=== PATIENT | female | born 1935 | race Two or more races ===

== ENCOUNTER 2018-02-21 15:16 | Emergency (ER) | payer OTHER ==
[~2018-02-21] VITALS: Ht 149.9 cm; Wt 52.2 kg
[~2018-02-21 15:16] MED LIST: ANTIVERT25 M1 PO
[2018-02-21] MEDS ORDERED: SYNTHROID50 MCG PO (15:26)
[2018-02-21] MEDS ORDERED: SINEMET 25-1001 EACH PO (15:27)
== END 2018-02-21 19:28 | disposition home or self-care (01) ==
LOC: ER 15:16
DX: S42.031A Displaced fracture of lateral end of right clavicle, initial encounter for closed fracture (principal); S62.511A Displaced fracture of proximal phalanx of right thumb, initial encounter for closed fracture; S90.111A Contusion of right great toe without damage to nail, initial encounter; S19.9XXA Unspecified injury of neck, initial encounter; W01.198A Fall on same level from slipping, tripping and stumbling with subsequent striking against other object, initial encounter; Y93.01 Activity, walking, marching and hiking; Y92.018 Other place in single-family (private) house as the place of occurrence of the external cause; Y99.8 Other external cause status

== ENCOUNTER 2022-01-07 13:45 | Emergency (ER) | payer OTHER ==
[~2022-01-07] VITALS: Ht 152.4 cm; Wt 45.4 kg
[~2022-01-07 13:45] MED LIST changes: +SINEMET 25-1001 EACH PO; +SYNTHROID50 MCG PO
[2022-01-07] MEDS ORDERED: VITAMIN D-40010 MCG (14:00)
[2022-01-07] MEDS ORDERED: ORPHENADRINE C100 MG PO (16:57)
[2022-01-07] MEDS ORDERED: CELEBREX100 MG PO (16:57)
== END 2022-01-07 17:02 ==
LOC: ER 13:45
DX: S00.93XA Contusion of unspecified part of head, initial encounter (principal); W18.30XA Fall on same level, unspecified, initial encounter; Y93.9 Activity, unspecified; Y92.017 Garden or yard in single-family (private) house as the place of occurrence of the external cause; Y99.9 Unspecified external cause status; Z88.0 Allergy status to penicillin